=== PATIENT | female | born 1965 | race Caucasian/White ===

== ENCOUNTER → 2016-11-11 | Outpatient (CLI) | payer OTHER ==
[~2016-11-11] MED LIST: ACCUNEB SO1.25 MG/1 INH; ASPIRIN325 PO; ATIVAN0.5 MG PO; AUGMENTIN 875875 MG PO; BACTRIM DS TAB1 EACH PO; BACTROBAN22 GM NASAL; COLACE100 MG PO; DEEP SEA NASAL44 M1 NASAL; DEXAMETHASONE 44 M1 PO; EFFEXOR XR37.5 MG PO; ENOXAPARIN40 MG/0.1 SUBQ; ENOXAPARIN80 MG/0.1 SUBQ; HYDROCHLOROTH12.5 M1 PO; HYDROXYZINE HCL25 M1 PO; LEXAPRO; LISINOPRIL10 MG PO; LISINOPRIL20 MG PO; METAXALL800 MG PO; NORCO 5-325 TA1 EACH PO; ONDANSETRON HCL4 M2 PO; PREDNISONE 5 MG5 M1; PROTONIX40 M1 PO; PROTONIX40 M2 PO; TUSSIONEX PENNKI1 ML PO; VALACYCLOVIR1000 MG PO; VALTREX1000 MG PO; XANAX 0.25 MG0.25 MG PO; ZESTORETIC 20-1 EAC3 PO; ZOFRAN ODT4 MG PO; ZOFRAN8 MG PO; ZYVOX600 MG PO
== END ==
LOC: ULTRA 01:07
DX: N63 Unspecified lump in breast (principal)

== ENCOUNTER → 2017-03-12 | Outpatient (CLI) | payer OTHER | LOC: ULTRA 07:46 | DX: N60.02 Solitary cyst of left breast (principal) ==

== ENCOUNTER → 2018-06-05 | Outpatient (CLI) | payer OTHER | LOC: ULTRA 11:38 | DX: N60.01 Solitary cyst of right breast (principal) ==

== ENCOUNTER → 2018-11-02 | Outpatient (CLI) | payer OTHER | LOC: ULTRA 08:46 | DX: N63.12 Unspecified lump in the right breast, upper inner quadrant (principal); Z85.3 Personal history of malignant neoplasm of breast ==